=== PATIENT | male | born 1995 | race Caucasian/White ===

== ENCOUNTER 2021-09-09 15:33 | Emergency (ER) | payer OTHER ==
[~2021-09-09] VITALS: Ht 180.3 cm; Wt 72.6 kg
[2021-09-09 15:57] VITALS: BP 124/68
== END 2021-09-09 15:58 | disposition home or self-care (01) ==
LOC: M.ERS 15:33 → EDBD 15:33 → M.ERS 15:58
DX: F19.139 Other psychoactive substance abuse with withdrawal, unspecified (principal)